=== PATIENT | female | born 1980 | race Caucasian/White ===

== ENCOUNTER 2022-01-02 14:34 | Emergency (ER) | payer BC, SELFPAY ==
[2022-01-02 14:59] VITALS: BP 130/77; PULSE 70; RESP 18; TEMP 37.2; O2SAT 100; BMI 27.4
--- NOTE | 2022-01-02 16:00 | ED.EAR ---
HPI - Ear Problem General Chief complaint: Ear Problems Stated complaint: FO stuck in ear Time Seen by Provider: 01/02/22 14:43 History of Present Illness HPI Narrative: Patient complains of ear bud stuck in left ear when she pulled out her headphones Related Data Home Medications Medication Instructions Recorded Confirmed albuterol sulfate 90 mcg/actuation 2 puff inhalation Q4H PRN wheezing 01/02/22 aerosol inhaler Allergies Allergy/AdvReac Type Severity Reaction Status Date / Time No Known Allergies Allergy Unverified 01/02/22 13:21 Review of Systems Review of Systems: Positive for left ear foreign body Negatives are no headache no blood from the ear no other ear pain no numbness weakness or tingling no dizziness no vomiting Yes all other systems are reviewed and are negative PMFSH Past Medical History Source: nursing notes reviewed Social History Social History Advance Directives: No Advance Directives Information Provided: No Physical Exam Vital Signs: Vital Signs: Last Vital Signs Temp 98.9 F 01/02/22 14:59 Pulse 70 01/02/22 14:59 Resp 18 01/02/22 14:59 BP 130/77 01/02/22 14:59 Pulse Ox 100 01/02/22 14:59 O2 Del Method 01/02/22 14:59 BMI result Body Mass Index 27.4 General appearance no distress Head is normocephalic atraumatic The ear exam the right ear is normal The left ear has the ear bud close to the entrance of the ear canal otherwise obscuring the tympanic membrane Neck is supple Respiratory no distress Extremities full range of motion x4 Neuro gait and balance are normal Course Course Course Narrative: ER Course PA student removed the ear but with a forceps without incident After removal the tympanic membrane was clear the canal was not scratched and it was a normal ear exam with foreign body removed Discharge Plan Discharge Clinical Impression: Foreign body in left ear Patient Disposition: Home, Self-Care Additional Instructions: Foreign body was removed Eardrum was intact no sign of any damage Return any time any worse condition or any concerns Prescriptions: No Action albuterol sulfate 90 mcg/actuation HFA aerosol inhaler 2 puff inhalation Q4H PRN (Reason: wheezing)
== END 2022-01-02 17:41 | disposition home or self-care (01) ==
PROVIDERS: Emergency Provider Emergency Medicine; PCP Internal Medicine
DX: T16.2XXA Foreign body in left ear, initial encounter (principal); X58.XXXA Exposure to other specified factors, initial encounter
CPT/HCPCS: 69200; 99282; 99284

== ENCOUNTER 2022-07-12 10:08 | Outpatient (REF) | payer BC, SELFPAY ==
[2022-07-12 15:50] LABS: CT PCR NOT DETECTED (Not Detect.); NG PCR NOT DETECTED (Not Detect.)
[2022-07-13 09:37] LABS: BV Int Neg Control Negative (Negative); BV Int Pos Control Positive (Positive)
[2022-07-15 02:44] LABS: HPV mRNA E6/E7 rflx Not Detected (Not Detected)
== END 2022-07-12 10:09 | disposition home or self-care (01) ==
LOC: HO.LNP 10:08
PROVIDERS: PCP Internal Medicine; Visit Provider Advanced Practice Midwife
DX: Z01.419 Encounter for gynecological examination (general) (routine) without abnormal findings (principal); Z11.51 Encounter for screening for human papillomavirus (HPV); N92.0 Excessive and frequent menstruation with regular cycle; Z20.2 Contact with and (suspected) exposure to infections with a predominantly sexual mode of transmission
CPT/HCPCS: 0353U; 87480; 87510; 87624; 87660; 88142

== ENCOUNTER 2023-01-04 14:14 | Outpatient (AMB) | payer BC, SELFPAY ==
--- NOTE | 2023-01-04 14:20 | MHC.OFFWIV ---
Intake Vital Signs 01/04/23 14:21 Weight 149 lb BP 112/68 Blood Pressure Location Rt brachial Position Sitting Pulse 88 Pulse Source Pulse Oximeter Pulse Oximetry (%) 97 Oxygen Delivery Method Room Air Intake Visit Reasons: EP Sores Intake Note: Patient here because she is aware she has an STD and has been but recently got and would like to have Valtrex prescribed. She states shes had it in the past. Patient Tobacco Use Status: Former Tobacco user Allergies No Known Allergies Allergy (Verified 01/04/23 14:23) Do you need a note to return to daycare/school/sports/work: No HPI HPI Comments History of Present Illness Details 42-year-old female history of HSV that presents for sore. Patient states that she has a history of HSV has been on the cycler in the past. She has flare-ups every once in a while but has been with same partner for 20 years. She is recently in has a sore. She denies any fevers chills nausea vomiting. PFSH Family History (Updated 07/12/22 @ 10:21 by CLINT Heck) Paternal Grandmother Breast cancer Social History Household Members Other:: , 2 children 9 ,5. works at [employer], exercise, Housing: House Patient Tobacco Use Status: Former Tobacco user e-Cigarette/Vaping Use: Never Used service: No Current occupational status: employed Cognitive needs: No Hearing needs: No Vision needs: No Female Reproductive History Menstrual Age of Menarche: 13 Review of Systems Skin/Breast Details: Sore on labia Physical Exam Vital Signs: Last Vital Signs Pulse 88 01/04/23 14:21 BP 112/68 01/04/23 14:21 Pulse Ox 97 01/04/23 14:21 Oxygen Delivery Method Room Air 01/04/23 14:21 Const General: no acute distress and alert Other: patient deferred exam at this time. Assessment & Plan Assessment & Plan (1) HSV (herpes simplex virus) infection: Code(s): B00.9 - Herpesviral infection, unspecified Plan Patient's symptoms and history consistent with HSV recurrence. Will prescribe valacyclovir. Discharge instructions, follow up and treatment are discussed with patient in my usual fashion. Alternatives in treatment are also discussed. The patient will return for worsening symptoms or as needed. Advised that any labs/imaging ordered will be followed up on and contact made if further treatment needed. Counseled that patient's condition may require further evaluation and/or treatment. Symptoms of concern for worsening disorder discussed in detail in my customary manner. Patient does verbalize understanding of the plan, there are no apparent barriers to communication. The patient is given the opportunity to ask questions and have them answered to his/her satisfaction Medications: New valacyclovir 500 mg PO BID 3 days 6 tabs 0RF Coding Level of Care Code Est Pt Level 3 (68921) Diagnoses HSV (herpes simplex virus) infection B00.9
[2023-01-04 14:21] VITALS: BP 112/68; PULSE 88; O2SAT 97
== END 2023-01-04 15:16 | disposition home or self-care (01) ==
PROVIDERS: PCP Internal Medicine; Visit Provider Physician Assistant
DX: B00.9 Herpesviral infection, unspecified (principal)
CPT/HCPCS: 99213

== ENCOUNTER 2023-03-20 10:30 | Outpatient (AMB) | payer BC, SELFPAY ==
--- NOTE | 2023-03-20 10:38 | A.OFFPC_ITS ---
Vital Signs 03/20/23 10:39 Height 5 ft 3 in Weight 152 lb 8 oz BMI 27.0 BP 118/76 Blood Pressure Location Lt brachial Pulse 78 Pulse Source Pulse Oximeter Pulse Oximetry (%) 98 Oxygen Delivery Method Room Air Intake Visit Reasons: buttocks muscle pain, valtrex therapy Intake Note: Patient here because she fell and landed on a ledge in january and was very brusied at first but now she has indent on her buttocks. And also has mole on right side of chest that she would like to have looked at. Allergies No Known Allergies Allergy (Verified 03/20/23 10:41) Medication List - Last Reconciled 03/20/23 by Mercy Stanley MD albuterol sulfate 90 mcg/actuation 2 puffs inhalation Q4H PRN valacyclovir 500 mg PO BID Tobacco use date assessed: 05/24/22 HPI buttocks muscle pain, valtrex therapy HPI Details Pt presents for f/u of a fall from 7 FT height on L buttock in Jan. pain and swelling resolved but pt has persistent indentation in L buttock. Asthma is mild and controlled on Proair prn 1- 2 in month. PFSH Family History Paternal Grandmother Breast cancer Social History Household Members Other:: , 2 children 9 ,5. works at [email or web address], exercise, Housing: House Patient Tobacco Use Status: Former Tobacco user e-Cigarette/Vaping Use: Never Used service: No Current occupational status: employed Cognitive needs: No Hearing needs: No Vision needs: No Female Reproductive History Menstrual Age of Menarche: 13 Questionnaire Thrive Questionnaire Date Thrive assessed: 05/24/22 JIE-7 AMB Questionnaire JIE-7 Date JIE - 7 assessed: 05/24/22 Source: Developed by Drs. Zan Parkinson, Vanessa Aguilar, Eliel Gomez and colleagues, with an educational deepak from [employer]. Review of Systems Const All systems reviewed & are unremarkable except as noted in HPI and below Reports no additional complaints Eyes Reports no additional complaints ENT Reports no additional complaints Card Reports no additional complaints Resp Reports no additional complaints GI Reports no additional complaints Reports no additional complaints Physical exam (Primary Care) Vital Signs: Last Vital Signs Pulse 78 03/20/23 10:39 BP 118/76 03/20/23 10:39 Pulse Ox 98 03/20/23 10:39 Oxygen Delivery Method Room Air 03/20/23 10:39 BMI result Body Mass Index 27.0 Tobacco/Smoking Status: Tobacco use Status Tobacco use date assessed 05/24/22 03/20/23 10:43 Patient Tobacco Use Status Former Tobacco user 03/20/23 10:43 e-Cigarette/Vaping Use Never Used 03/20/23 10:43 Thrive Assessment: Date of Thrive Assessment Date Thrive assessed 05/24/22 03/20/23 10:43 Const General: no acute distress HENMT Head: Yes normal to inspection Resp Effort & Inspection: normal respiratory effort Auscultation: clear to auscultation bilaterally Cardio Rhythm: regular rhythm Heart sounds: S1 normal heart sound present and S2 normal heart sound present Back/Spine/Pelvis Other: L buttock horizontal void , no tenderness, swelling Assessment and Plan Assessment & Plan (1) Annual physical exam: Code(s): Z00.00 - Encounter for general adult medical examination without abnormal findings (2) Asthma: Comment: Mild controlled on albuterol p.r.n. Code(s): J45.909 - Unspecified asthma, uncomplicated Plan: cont Albuterol prn (3) Herpes genitalia: Comment: on Valtrex prophylaxis Code(s): A60.00 - Herpesviral infection of urogenital system, unspecified Orders: Orders Comprehensive [place]. Panel Fast Today J45.909 - Unspecified asthma, u ncomplicated, Z00.00 - Encounter for general adult medical examination without abnormal findings Complete Blood Count Auto Diff Today J45.909 - Unspecified asthma, uncomplic ated, Z00.00 - Encounter for general adult medical examination without abnormal findings Lipid Panel Today J45.909 - Unspecified asthma, uncomplicated, Z00.00 - Encounter for general adult medical examination without abnormal findings IRON PROFILE Today Z00.00 - Encounter for general adult medical examination without abnormal findings Medications: Changed From valacyclovir 500 mg PO BID 60 tabs 3RF To valacyclovir 500 mg PO DAILY 90 tabs 3RF Refilled albuterol sulfate 90 mcg/actuation 2 puffs inhalation Q4H PRN 8.5 grams 3RF whe ezing J45.909 - Unspecified asthma, uncomplicated Coding Level of Care Code Est Pt Level 3 (27377) Diagnoses Annual physical exam Z00.00 Asthma J45.909 Herpes genitalia A60.00
[2023-03-20 10:39] VITALS: BP 118/76; PULSE 78; O2SAT 98; BMI 27.0
== END 2023-03-20 12:02 | disposition home or self-care (01) ==
PROVIDERS: PCP Internal Medicine; Visit Provider Internal Medicine
DX: Z00.00 Encounter for general adult medical examination without abnormal findings (principal); J45.909 Unspecified asthma, uncomplicated; A60.00 Herpesviral infection of urogenital system, unspecified
CPT/HCPCS: 99213

== ENCOUNTER 2023-08-15 11:40 | Outpatient (AMB) | payer OTHER, SELFPAY ==
[2023-08-15 12:02] VITALS: BP 110/62
--- NOTE | 2023-08-15 12:02 | A.OFFVIS_ITS ---
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 She had been contemplating a ParaGard IUD last year but has decided against that but now her periods are becoming longer heavier more crampy more annoying to her and they seem to last longer she is actually been thinking about getting in a Mirena IUD she had had 1 in the past after her last child was born and it always caused her cramping and pain and discomfort and when it was finally removed some years later it turns out that it was some how crooked in her cervix/uterus and that is what was causing all the discomfort so that put her off the Mirena but now she is thinking about it again. She has been doing some reading. She is gotten and she feels much happier and she is dating somebody but that person has had a vasectomy so she does not need to worry about but she definitely wants to do something about her heavy periods. She also has been having back issues and would like her breast implants removed but isn't sure about how to approach that challenge. She had to cancel the mammogram last year because of work and so she would like to schedule that again. PFSH Family History Paternal Grandmother Breast cancer Social History Household Members Other:: , 2 children 9 ,5. works at [employer], exercise, Housing: House Patient Tobacco Use Status: Former Tobacco user e-Cigarette/Vaping Use: Never Used service: No Current occupational status: employed Cognitive needs: No Hearing needs: No Vision needs: No Female Reproductive History Menstrual Age of Menarche: 13 Duration of menses: 3-5 days Date of last menstrual period: 08/02/23 control method: none Total pregnancies: 2 Full term: 2 Date of last pap smear: 07/12/22 (negative) History of abnormal pap smear: No Physical Exam Vital Signs: Last Vital Signs BP 110/62 08/15/23 12:02 Const General: healthy appearing, comfortable, no acute distress, well developed and alert Nutritional Appearance: average body habitus Orientation/consciousness: patient oriented x3 Limitations: no limitations HEENT Head: Yes normocephalic Neck Neck: Yes normal visual inspection Chest Other: Has bilateral breast implants Chest palpation & inspection: normal inspection of the chest Breast/axilla inspection: normal inspection of the breasts and normal inspection of the axillae Breast/axilla palpation: normal palpation of the breasts and normal palpation of the axillae Resp Effort & Inspection: normal respiratory effort GI Inspection: Yes normal to inspection, No Abdominal wall edema and No distended Palpation (GI): Soft to palpation and nontender Other: External exam within normal limits vagina pink and moist cervix is tightly closed nulliparous pink smooth no abnormal discharge uterus small slightly fixed midposition nontender adnexa nontender very good tone with Kegel. General: Yes bladder normal to palpation External Female Exam: normal external appearance and normal appearance of the urethra Speculum Exam - Vagina: normal appearance of the vagina, normal palpation and normal vaginal discharge Speculum Exam - Cervix: normal appearance of the cervix, normal palpation and nontender Bimanual exam- vagina & uterus: normal bimanual exam, normal palpation, uterine size normal, bladder normal to palpation, consistency normal, normal palpation, uterine mobility normal, uterine shape normal, No Cervical tenderness present, non-tender and no cervical motion tenderness Bimanual Exam- Adnexa, other: normal adnexae, no masses, normal and No adnexal tenderness Neuro General: patient oriented x3 Assessment & Plan Assessment & Plan (1) Breast implant in situ: Code(s): Z98.82 - Breast implant status (2) Breast cancer screening: Code(s): Z12.39 - Encounter for other screening for malignant neoplasm of breast (3) Well woman exam with routine gynecological exam: Code(s): Z01.419 - Encounter for gynecological examination (general) (routine) without abnormal findings (4) Cervical cancer screening: Comment: 07/12/2022 Pap is negative with negative HPV Code(s): Z12.4 - Encounter for screening for malignant neoplasm of cervix (5) Screen for sexually transmitted diseases: Code(s): Z11.3 - Encounter for screening for infections with a predominantly sexual mode of transmission (6) control counseling: Code(s): Z30.09 - Encounter for other general counseling and advice on contraception (7) Menorrhagia with regular cycle: Code(s): N92.0 - Excessive and frequent menstruation with regular cycle Plan -----Discussed in this visit the following: healthy balanced diet, regular and consistent exercise, getting recommended health screens, doing the best she can for her particular health concerns, kegel exercises, pap smear screening and followup recommendations, mammography screening and SBE, normal changes in cycles in her life stage--- .Reviewed how the Mirena works and its affect on menstrual cycles and menses and the other common changes that women sometimes notice on mood weight another subtle cyclic changes. Reviewed that 1 of the reasons we insert the Mirena at the beginning of the menses is because of the typical physiologic changes that happen with menses that allow for the cervix to be slightly softened and open a very tiny bit which allow for more easy insertion of the Mirena. Additionally when it is inserted at the beginning of the menstrual cycle the endometrial lining has not built up very much yet as it is just shedding its lining, and therefore future periods will be expected to be cork molder and there will be less of a problematic side effect of irregular bleeding which might occur her if we inserted it at a random time. Also discussed the initial recommendations to use the Mirena IUD for contraception for up to 5 years. Some recent studies are indicating that it can be used for longer and there are current recommendations saying it can be left for longer period of time when used for contraception, up to 8 years and it can be used for 5 years when it is being used to help control abnormal bleeding. However, many women, whose periods went away for the 1st few years of having the Mirena, have reported that around 4-1/2-5 years into its use, they have noticed return of full menses, and return of ovulatory signs and symptoms midcycle. This varies from women to woman. In addition women who have had it to help control bleeding, have had amenorrhea for very many years and sometimes have opted to leave it in longer if they are still not bleeding, when they are not concerned about contraception. Since she is interested in the Mirena to help control her heavy crampy periods she is interested now more in the Mirena rather than the ParaGard which would have the opposite effect essentially. I reviewed why I will only insert it in the heaviest crampy is days of her. And why that is and I showed her her tightly closed nulliparous cervix as well to help illustrate this. (she had 2 C sections) I reordered her mammogram for her and she will call at the very beginning of her. And will try to schedule it for when she has her heaviest menses. Orders: Orders MM tomosynthesis screening BI Today N92.0 - Excessive and frequent menstruation with regular cycle, Z01.419 - Encounter for gynecological examination (general) (routine) without abnormal findings, Z11.3 - Encounter for screening for infections with a predominantly sexual mode of transmission, Z12.31 - Encounter for screening mammogram for malignant neoplasm of breast, Z12.39 - Encounter for other screening for malignant neoplasm of breast, Z12.4 - Encounter for screening for malignant neoplasm of cervix, Z30.09 - Encounter for other general counseling and advice on contraception, Z98.82 - Breast implant status Coding Level of Care Code Est Pt Prev Care 40-64y(76873) Diagnoses Breast implant in situ Z98.82 Breast cancer screening Z12.39 Well woman exam with routine gynecological exam Z01.419 Cervical cancer screening Z12.4 Screen for sexually transmitted diseases Z11.3 control counseling Z30.09 Menorrhagia with regular cycle N92.0
== END 2023-08-15 13:24 | disposition home or self-care (01) ==
PROVIDERS: PCP Internal Medicine; Visit Provider Advanced Practice Midwife
DX: Z01.419 Encounter for gynecological examination (general) (routine) without abnormal findings (principal); N92.0 Excessive and frequent menstruation with regular cycle; Z98.82 Breast implant status
CPT/HCPCS: 99396

== ENCOUNTER 2023-08-15 11:40 | Outpatient (REF) | payer OTHER, SELFPAY ==
[2023-08-16 06:31] LABS: CT PCR NOT DETECTED (Not Detect.); NG PCR NOT DETECTED (Not Detect.)
[2023-08-16 13:04] LABS: BV Int Neg Control Negative (Negative); BV Int Pos Control Positive (Positive)
== END 2023-08-15 11:41 | disposition home or self-care (01) ==
LOC: HO.LAB 11:40
PROVIDERS: PCP Internal Medicine; Visit Provider Advanced Practice Midwife
DX: Z01.419 Encounter for gynecological examination (general) (routine) without abnormal findings (principal); Z20.2 Contact with and (suspected) exposure to infections with a predominantly sexual mode of transmission; N92.0 Excessive and frequent menstruation with regular cycle
CPT/HCPCS: 0353U; 87480; 87510; 87660

== ENCOUNTER 2024-03-22 13:42 | Outpatient (AMB) | payer OTHER, SELFPAY ==
--- NOTE | 2024-03-22 13:47 | AM.OFFWIN_ITS ---
Intake Vital Signs 03/22/24 13:48 Height 5 ft 3 in BP 120/72 Blood Pressure Location Rt brachial Position Sitting Pulse 88 Pulse Source Pulse Oximeter Pulse Oximetry (%) 98 Intake Visit Reasons: EP Rash Intake Note: pt is here for rash all over body for the last few weeks, unsure why. denies new medications, or vaccines, denies changes to diet Patient Tobacco Use Status: Former Tobacco user Allergies No Known Allergies Allergy (Verified 03/22/24 13:48) Do you need a note to return to daycare/school/sports/work: No HPI HPI Comments History of Present Illness Details 43 y/o female patient who presents to [facility] walk in clinic with c/o rash that is very itchy covering her entire body for 2 weeks now. Denies any changes to her diet, cosmetic products, medications or Detergent. She has been using Hydrocortisone cream with minimal relief. H/o Mild asthma and seasonal allergies. 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 Denies SOB, CP, Chest tightness, facial edema, cough, runny nose or itchy eyes. PFSH Family History Paternal Grandmother Breast cancer Social History Household Members Other:: , 2 children 9 ,5. works at [employer], exercise, Housing: House Patient Tobacco Use Status: Former Tobacco user e-Cigarette/Vaping Use: Never Used service: No Current occupational status: employed Cognitive needs: No Hearing needs: No Vision needs: No Female Reproductive History Menstrual Age of Menarche: 13 Review of Systems Const All systems reviewed & are unremarkable except as noted in HPI and below Physical Exam Vital Signs: Last Vital Signs Pulse 88 03/22/24 13:48 BP 120/72 03/22/24 13:48 Pulse Ox 98 03/22/24 13:48 Const General: cooperative and no acute distress Orientation/consciousness: patient oriented x3 HEENT Head: Yes normocephalic General nose exam: Normal external nose present Face and sinus: Yes normal facial exam Mouth: moist mucous membranes Resp Effort & Inspection: normal respiratory effort Auscultation: clear to auscultation bilaterally Cardio Heart sounds: S1 normal heart sound present and S2 normal heart sound present Skin General skin exam: dry skin, erythema and lichenification Rashes: rashes noted (Small erythematous Hives, dry and raised rash covering the whole body. ) Neuro General: patient oriented x3, gait normal and moves all extremities Psych Speech and movement: Normal speech and movement present Assessment & Plan Assessment & Plan (1) Rash and nonspecific skin eruption: Code(s): R21 - Rash and other nonspecific skin eruption Plan: Ordered Prednisone for 5 days. Take Zyrtec 10 mg BID for few days. Ordered Topical steroid cream. Advised to f/u with Dermatology (Infor to [facility] given to Patient). Medications: New prednisone 50 mg PO DAILY 5 tabs 0RF R21 - Rash and other nonspecific skin eruption cetirizine (Zyrtec) TAKE DIRECTED 10 mg PO DAILY 30 caps 0RF R21 - Rash and other nonspecific skin eruption triamcinolone acetonide 0.025% 1 appl topical BID 60 mL 2RF R21 - Rash and other nonspecific skin eruption Coding Level of Care Code Est Pt Level 3 (75662) Diagnoses Rash and nonspecific skin eruption R21 Time Spent (min) 15
[2024-03-22 13:48] VITALS: BP 120/72; PULSE 88; O2SAT 98
== END 2024-03-22 14:06 | disposition home or self-care (01) ==
PROVIDERS: PCP Internal Medicine; Visit Provider Nurse Practitioner Family
DX: R21 Rash and other nonspecific skin eruption (principal)

== ENCOUNTER → 2024-03-22 13:42 | Outpatient (BNVA) | payer OTHER, SELFPAY | PROVIDERS: PCP Internal Medicine; Visit Provider Nurse Practitioner Family ==

== ENCOUNTER 2024-04-17 12:55 | Outpatient (AMB) | payer OTHER, SELFPAY ==
[2024-04-17 13:02] VITALS: BP 120/78; PULSE 89; O2SAT 97; BMI 30.1
--- NOTE | 2024-04-17 13:02 | MHC.PC.OV ---
Vital Signs 04/17/24 13:02 Height 5 ft 3 in Weight 170 lb BMI 30.1 BP 120/78 Blood Pressure Location Rt brachial Position Sitting Pulse 89 Pulse Source Pulse Oximeter Pulse Oximetry (%) 97 Oxygen Delivery Method Room Air Intake Visit Reasons: robert Intake Note: Pt is here today for a sick visit. Pt c/o chest cold. Pt states that the cough and wheezing worst at night. Allergies No Known Allergies Allergy (Verified 04/17/24 13:06) Medication List - Last Reconciled 04/17/24 by Mercy Stanley MD albuterol sulfate 90 mcg/actuation 2 puffs inhalation Q4H PRN cetirizine (Zyrtec) 10 mg PO DAILY fluticasone propion-salmeterol 250-50 mcg/dose (Advair Diskus) 1 inh inhalation BID prednisone 20 mg PO DAILY triamcinolone acetonide 0.025% 1 appl topical BID valacyclovir 500 mg PO DAILY Tobacco use date assessed: 04/17/24 Dental Screening Dental Screen Date: 04/17/24 Did you have a dental visit in the last 12 months?: Yes Did you have a dental problem in the last 6 months where you did not have access to dental care?: No Was dental information given to patient?: Patient has dentist HPI robert HPI Details Pt c/o 2 week of productive white sputum cough, increased wheezing for 2 week. She has been using albuterol a few times a day. She denies fever chills pleurisy sinus congestion postnasal drip. Patient used to use Advair but did not refill it in the beginning of the year because of a high cost. She has been trying to lose weight, decreasing caloric intake , increasing physical activity for over 6 months unsuccessfully. Patient is interested in trying GLP 1 agonist to facilitate weight loss PFSH Family History Paternal Grandmother Breast cancer Social History Household Members Other:: , 2 children 9 ,5. works at [employer], exercise, Housing: House Patient Tobacco Use Status: Former Tobacco user e-Cigarette/Vaping Use: Never Used service: No Current occupational status: employed Cognitive needs: No Hearing needs: No Vision needs: No Female Reproductive History Menstrual Age of Menarche: 13 Questionnaire PHQ-9 Over the last 2 weeks, how often have you been bothered by any of the following problems? 1. Little interest or pleasure in doing things: not at all 2. Feeling down, depressed, or hopeless: not at all 3. Trouble falling or staying asleep, or sleeping too much: several days 4. Feeling tired or having little energy: several days 5. Poor appetite or overeating: more than half the days 6. Feeling bad about yourself - or that you are a failure or have let yourself or your family down: not at all 7. Trouble concentrating on things, such as reading the newspaper or watching television: not at all 8. Moving or speaking so slowly that other people could have noticed. Or the opposite - being so fidgety or restless that you have been moving around a lot more than usual: not at all 9. Thoughts that you would be better off or of hurting yourself in some way: not at all Total score: 4 Depression Screening Interpretation: Negative Depression Screening Done: Yes 03301 - PHQ-9 Billing: Yes Source: Developed by Drs. Zan Parkinson, Vanessa Aguilar, Eliel Gomez and colleagues, with an educational deepak from [employer]. Thrive Questionnaire Date Thrive assessed: 04/17/24 I am a: Patient What is your living situation today?: I have a steady place to live Within the past 12 months, did the food you bought not last and you didn't have the money to get more?: Never true Within the past 12 months, did you worry whether your food would run out before you got money to buy more?: Never true Do you have trouble paying for medicines?: No Do you have trouble getting transportation to medical appointments?: No Do you have trouble paying your heating and electricity bill?: No Do you have trouble taking care of your child, family member or friend?: No Do you have trouble with day-to-day activities such as bathing, preparing meals, shopping, managing finances, etc.?: No Are you currently unemployed and looking for a job?: No Are you interested in more education?: No Please select the resources that you would like help with: Food Currently or been in a relationship where the following occur: No concerns reported THRIVE Score: 0 AUDIT C Alcohol Use Questionnaire (AUDIT-C) 1. How often do you have a drink containing alcohol?: Monthly or less 2. How many drinks containing alcohol do you have on a typical day when you are drinking?: 1 or 2 3. How often do you have six or more drinks on one occasion?: Never Total Score: 1 JIE-7 AMB Questionnaire JIE-7 Date JIE - 7 assessed: 04/17/24 Feeling nervous, anxious, or on edge: 0 = Not at all Not being able to stop or control worryin = Not at all Worrying too much about different things: 0 = Not at all Trouble relaxin = Not at all Being so restless that it is hard to sit still: 0 = Not at all Becoming easily annoyed or irritable: 0 = Not at all Feeling afraid as if something awful might happen: 0 = Not at all Total JIE-7 score (0-4 normal; 5-9 mild; 10-14 moderate; 15-21 severe): 0 Source: Developed by Drs. Zan Parkinson, Vanessa Aguilar, Eliel Gomez and colleagues, with an educational deepak from [employer]. JIE-7 Assessment Billing JIE-7 Assessment Tool: JIE-7 Assessment 65283 Review of Systems Const All systems reviewed & are unremarkable except as noted in HPI and below ENT Reports no additional complaints Card Reports no additional complaints Resp Reports no additional complaints GI Reports no additional complaints Reports no additional complaints Physical exam (Primary Care) Vital Signs: Last Vital Signs Pulse 89 04/17/24 13:02 BP 120/78 04/17/24 13:02 Pulse Ox 97 04/17/24 13:02 Oxygen Delivery Method Room Air 04/17/24 13:02 BMI result Body Mass Index 30.1 Tobacco/Smoking Status: Tobacco use Status Tobacco use date assessed 04/17/24 04/17/24 13:08 Patient Tobacco Use Status Former Tobacco user 04/17/24 13:08 e-Cigarette/Vaping Use Never Used 04/17/24 13:08 PHQ-9: PHQ-9 Score PHQ-9: Total score 4 04/17/24 13:08 Depression Screening Interpretation: Negative Thrive Assessment: Date of Thrive Assessment Date Thrive assessed 04/17/24 04/17/24 13:08 Currently or been in a relationship where the following occur: No concerns reported Const General: no acute distress HENMT Head: Yes normal to inspection Mouth: Normal oral and palatal mucosa present Eyes General: appearance normal, both eyes and all related structures Neck Neck: Yes supple Resp Effort & Inspection: normal respiratory effort Auscultation: clear to auscultation bilaterally Cardio Rhythm: regular rhythm Heart sounds: S1 normal heart sound present and S2 normal heart sound present Coding Level of Care Code Est Pt Level 4 (20004) Diagnoses Annual physical exam Z. Overweight E66.3 Asthma J45.909 Additional Codes JIE-7 Assessment Billing - JIE-7 Assessment Tool: JIE-7 Assessment 96458 ([id number]) PHQ-9 - 80586 - PHQ-9 Billing: Yes ([id number]) Assessment & Plan Assessment & Plan (1) Annual physical exam: Code(s): Z - Encounter for general adult medical examination without abnormal findings Category: Medical Plan: Check fasting blood work return for physical in May (2) Overweight: Code(s): E66.3 - Overweight Category: Medical Plan: Continue decreasing caloric intake increasing physical activity Wegovy 0.25 mg weekly for the 1st month will be started side effects discussed with the patient. The dose can be increased if patient tolerate medication well (3) Asthma: Comment: Mild controlled on albuterol p.r.n. Code(s): J45.909 - Unspecified asthma, uncomplicated Category: Medical Plan: For worsening asthma Advair 250 will be restarted. Prednisone 20 mg daily for 5 days is prescribed and patient was advised to continue using albuterol as needed, follow-up in 1 month Orders: Orders Comprehensive [place]. Panel Fast Today Z00.00 - Encounter for general adult medical examination without abnormal findings Complete Blood Count Auto Diff Today Z00.00 - Encounter for general adult medical examination without abnormal findings TSH reflex Free T4 Today Z00.00 - Encounter for general adult medical examination without abnormal findings Lipid Panel Today Z00.00 - Encounter for general adult medical examination without abnormal findings UA w Microscopic Today Z00.00 - Encounter for general adult medical examination without abnormal findings Medications: New fluticasone propion-salmeterol 250-50 mcg/dose (Advair Diskus) 1 inh inhalation BID 180 ea 1RF prednisone 20 mg PO DAILY 5 tabs 0RF Wegovy (semaglutide (weight loss)) administer weeks 1 through 4 of therapy 0.25 mg (0.5 mL) subcut QWEEK 2 mL 0RF NS Refilled albuterol sulfate 90 mcg/actuation 2 puffs inhalation Q4H PRN 8.5 grams 3RF wheezing J45.909 - Unspecified asthma, uncomplicated albuterol sulfate 90 mcg/actuation 2 puffs inhalation Q4H PRN 17 grams 3RF wheezing J45.909 - Unspecified asthma, uncomplicated
== END 2024-04-17 14:16 | disposition home or self-care (01) ==
PROVIDERS: PCP Internal Medicine; Visit Provider Internal Medicine
DX: Z00.00 Encounter for general adult medical examination without abnormal findings (principal); E66.3 Overweight; J45.909 Unspecified asthma, uncomplicated

== ENCOUNTER → 2024-04-17 12:55 | Outpatient (BNVA) | payer OTHER, SELFPAY | PROVIDERS: PCP Internal Medicine; Visit Provider Internal Medicine | DX: Z00.00 Encounter for general adult medical examination without abnormal findings (principal); E66.3 Overweight; Z68.30 Body mass index [BMI] 30.0-30.9, adult; J45.909 Unspecified asthma, uncomplicated | CPT/HCPCS: 96127 ==

== ENCOUNTER 2024-08-18 10:45 | Outpatient (AMB) | payer OTHER, SELFPAY ==
--- NOTE | 2024-08-18 10:46 | MHC.OFFVIS ---
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 (E[place]) Accompanied by: Self / Same As Patient Allergies No Known Allergies Allergy (Verified 08/18/24 10:51) Medication List - Last Reconciled 08/18/24 by Angie Whiteside CNM albuterol sulfate 90 mcg/actuation 2 puffs inhalation Q4H PRN cetirizine (Zyrtec) 10 mg PO DAILY fluticasone propion-salmeterol 250-50 mcg/dose (Advair Diskus) 1 inh inhalation BID triamcinolone acetonide 0.025% 1 appl topical BID valacyclovir 500 mg PO DAILY Is last menstrual period known: Yes Last menstrual period: 07/29/24 Post menopausal: No Patient : No HPI HPI MANDREL PRESS HAND annual exam: Details: 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 Her main concerns are that she has gained 30 lb in the last year or so since her divorce. She is in a good relationship and declines STI testing today as nothing has changed. He has a vasectomy so she does not need to worry about control either she had considered a Mirena for heavy periods but did not really like it when it was in before so she decided against it. She had a mammogram ordered last year but never went and got it done she has breast implants and wishes she could get them out. Her main concern is the weight gain she had been on Wegovy which was prescribed for her but her insurance is no longer pain for it since the beginning of the year and it would be 1600 dollars a month for and she can not afford that. She is interested in a referral to the weight management program. She feels like she needs to do something she feels very uncomfortable at her current weight. PFSH Family History Paternal Grandmother Breast cancer Social History Household Members Other:: , 2 children 9 ,5. works at [employer], exercise, Housing: House Patient Tobacco Use Status: Former Tobacco user e-Cigarette/Vaping Use: Never Used Patient : No service: No Current occupational status: employed Cognitive needs: No Hearing needs: No Vision needs: No Female Reproductive History Menstrual Age of Menarche: 13 Duration of menses: 6-7 days Date of last menstrual period: 07/29/24 control method: none Total pregnancies: 2 Full term: 2 Date of last pap smear: 07/12/22 (negative pap smear, negative hpv ) History of abnormal pap smear: No Physical Exam Vital Signs: Last Vital Signs BP 120/72 08/18/24 10:56 BMI result Body Mass Index 30.6 Const Other: Patient's face appears slightly flush today and she is breaking out in some hives on her torso and upper thighs. She is not bothered by them. General: healthy appearing, comfortable, no acute distress, well developed and alert Nutritional Appearance: average body habitus Orientation/consciousness: patient oriented x3 Limitations: no limitations HEENT Head: Yes normocephalic Neck Neck: Yes normal visual inspection Chest Chest palpation & inspection: normal inspection of the chest Breast/axilla inspection: normal inspection of the breasts and normal inspection of the axillae Breast/axilla palpation: normal palpation of the breasts and normal palpation of the axillae Resp Effort & Inspection: normal respiratory effort GI Inspection: Yes normal to inspection, No Abdominal wall edema and No distended Palpation (GI): Soft to palpation and nontender Other: Vagina pink and moist cervix multiparous pink smooth healthy appearing with normal whitish mucus and discharge consistent with luteal phase. Cervix long close thick mobile nontender uterus midposition mobile nontender good tone with Kegel. General: Yes bladder normal to palpation External Female Exam: normal external appearance and normal appearance of the urethra Speculum Exam - Vagina: normal appearance of the vagina, normal palpation and normal vaginal discharge Speculum Exam - Cervix: normal appearance of the cervix, normal palpation and nontender Bimanual exam- vagina & uterus: normal bimanual exam, normal palpation, uterine size normal, bladder normal to palpation, consistency normal, normal palpation, uterine mobility normal, uterine shape normal, No Cervical tenderness present, non-tender and no cervical motion tenderness Bimanual Exam- Adnexa, other: normal adnexae, no masses, normal and No adnexal tenderness Neuro General: patient oriented x3 Assessment & Plan Assessment & Plan (1) Breast implant in situ: Code(s): Z98.82 - Breast implant status Category: Medical (2) Breast cancer screening: Code(s): Z12.39 - Encounter for other screening for malignant neoplasm of breast Category: Medical (3) Well woman exam with routine gynecological exam: Code(s): Z01.419 - Encounter for gynecological examination (general) (routine) without abnormal findings Category: Medical (4) Cervical cancer screening: Comment: 07/12/2022 Pap is negative with negative HPV Code(s): Z12.4 - Encounter for screening for malignant neoplasm of cervix Category: Medical (5) control counseling: Code(s): Z30.09 - Encounter for other general counseling and advice on contraception Category: Medical (6) Obesity (BMI 30.0-34.9): Code(s): E66.811 - Obesity, class 1 Category: Medical Plan -----Discussed in this visit the following: healthy balanced diet, regular and consistent exercise, getting recommended health screens, doing the best she can for her particular health concerns, kegel exercises, pap smear screening and followup recommendations, mammography screening and SBE, normal changes in cycles in her life stage--- . I reordered the mammogram for her. I also placed a weight management referral for her discussed that if she was ever going to could do something about her breasts she may want to lose the weight 1st. She is doing what she can do with exercise she can not go to the gym but she uses a walking pad while she is working throughout the day. Discussed diet and carbs she is aware of the connection and its affect on her. The problem is her partner is a very good cook. She was not due for Pap smear and she had no need of any current STI testing and declined it we will see her next year. Orders: Orders MM tomosynthesis screening BI Today Z12.31 - Encounter for screening mammogram for malignant neoplasm of breast Referrals Medical Weight Management Referral E66.811 - Obesity, class 1, Z01.419 - Encounter for gynecological examination (general) (routine) without abnormal findings, Z12.39 - Encounter for other screening for malignant neoplasm of breast, Z12.4 - Encounter for screening for malignant neoplasm of cervix, Z30.09 - Encounter for other general counseling and advice on contraception, Z98.82 - Breast implant status Coding Level of Care Code Est Pt Prev Care 40-64y(42786) Diagnoses Breast implant in situ Z98.82 Breast cancer screening Z12.39 Well woman exam with routine gynecological exam Z01.419 Cervical cancer screening Z12.4 control counseling Z30.09 Obesity (BMI 30.0-34.9) E66.811
[2024-08-18 10:56] VITALS: BP 120/72; BMI 30.6
--- OUTSIDE RECORDS SUMMARY | 2024-08-18 12:28 | XMS_ITS | Encounter Summary ---
[facility] Organization [facility] Address [address] [place] [address] Care Team Providers Care Bruise Trimmer Name Role Phone Delia Stratton DO Primary Care Pro vider Unavailable Young Duke MD Primary Care Provider [phone] Reason for Visit * Reason Onset Date Comments refill request 04/02/2019 Encounter Details Date Type Department Care Team Description 04/02/2019 Refill Adult Medicine [address] [address] Delia Stratton DO refill request Social History Tobacco Use Types Packs/Day Years Used Date Smoking Tobacco: Former Smokeless Tobacco: Never Comments:quit 2012 Alcohol Use Standard Drinks/Week Comments Yes 0 (1 standard drink = 0.6 oz pure alcohol) Every day- 4-5 wine or seltzers. Sex Assigned at Date Recorded Not on file documented as of this encounter Miscellaneous Notes * Telephone Encounter - Shira Natividad - 04/02/2019 3:23 PM EST Patient would like script to be: E-PRESCRIBED/FAXED TO PHARMACY WHEN WAS THE PATIENT'S LAST APPOINTMENT IN ADULT MEDICINE? 02/21/2019 WHEN WAS THE LAST TIME THE PATIENT SAW THEIR PCP? 02/25/2015 Does patient have an upcoming appointment? No-patient refused appointment, will call back to book appointment (THE MEDICATION REQUESTED IS ON THE MED LIST ABOVE) All of the medications requested were on the CURRENT MEDS list Did you check the Pharmacy information above?: YES Patient wants: 30 -day supply Is this a mail order prescription request ? NO If the refill is from a FAXED refill request what is the RX # listed on the fax? N/A Patients current insurance carrier is: Payor: [employer] / Plan: PPO $20 [id number] / Product Type: PPO [id number] documented in this encounter Plan of Treatment Not on file documented as of this encounter Visit Diagnoses Not on filedocumented in this encounter Care Teams Bruise Trimmer Relationship Specialty Start Date End Date Delia Stratton DO PCP - General Internal Medicine 12/22/14 04/07/21 Young Duke MD [address] [place], [place] [id number] PCP - General Internal Medicine 04/08/21 documented as of this encounter
--- OUTSIDE RECORDS SUMMARY | 2024-08-18 12:28 | XMS_ITS | Encounter Summary ---
Author Organization [facility] Address [address] [place] [address] Care Team Providers Care Assembler Finger Buffs Name Role Phone Delia Stratton DO Primary Care Pro vider Unavailable Young Duke MD Primary Care Provider [phone] Reason for Visit * Reason Onset Date Comments refill request 07/03/2019 Encounter Details Date Type Department Care Team Description 07/03/2019 Refill Adult Medicine [address] [address] Delia Stratton DO refill request Social History Tobacco Use Types Packs/Day Years Used Date Smoking Tobacco: Former Smokeless Tobacco: Never Comments:quit 2012 Alcohol Use Standard Drinks/Week Comments Yes 0 (1 standard drink = 0.6 oz pure alcohol) Every day- 4-5 wine or seltzers. Sex Assigned at Date Recorded Not on file documented as of this encounter Miscellaneous Notes * Telephone Encounter - Irasema Guzman M.A. - 07/03/2019 11:21 AM EST Will you fill, this is going to a pharmacy in [place] * Telephone Encounter - Linnette Darnell - 07/03/2019 11:11 AM EST Patient is on vacation in [facility]. Patient would like script to be: E-PRESCRIBED/FAXED TO PHARMACY WHEN WAS THE PATIENT'S LAST APPOINTMENT IN ADULT MEDICINE? 02/21/19 WHEN WAS THE LAST TIME THE PATIENT SAW THEIR PCP? 02/25/15 Does patient have an upcoming appointment? No-patient [...] is: Payor: [employer]JAT / Plan: PPO $20 [id number] / Product Type: PPO [id number] documented in this encounter Plan of Treatment Not on file documented as of this encounter Visit Diagnoses Not on filedocumented in this encounter Care Teams Assembler Finger Buffs Relationship Specialty Start Date End Date Delia Stratton DO PCP - General Internal Medicine 12/22/14 04/07/21 Young Duke MD [address] [place] [id number] PCP - General Internal Medicine 04/08/21 documented as of this encounter
--- OUTSIDE RECORDS SUMMARY | 2024-08-18 12:28 | XMS_ITS | Encounter Summary ---
Author Organization [facility] Address [address] [place] [address] Care Team Providers Care Orchestra Musician Name Role Phone Delia Stratton DO Primary Care Pro vider Unavailable Young Duke MD Primary Care Provider [phone] Reason for Visit * Reason Onset Date Comments Medication 08/13/2015 Encounter Details Date Type Department Care Team Description 08/13/2015 Telephone Adult Medicine [address] [address] Delia Stratton DO Medication Social History Tobacco Use Types Packs/Day Years Used Date Smoking Tobacco: Former Smokeless Tobacco: Never Comments:quit 2012 Alcohol Use Standard Drinks/Week Comments No 0 (1 standard drink = 0.6 oz pur e alcohol) Sex Assigned at Date Recorded Not on file documented as of this encounter Miscellaneous Notes * Telephone Encounter - Delia Lozano DO - 08/14/2015 8:51 PM EDT Like a nasal spray of an asthma inhaler? She doesn't have a documented h/o asthma * Telephone Encounter - Irasema Guzman M.A. - 08/13/2015 1:32 PM EDT Pt seen by Dr Renee on 02/25/15 for sinuses. Pt has seasonal allergies. Asking if an inhaler can be prescribed. Pt to see Gilma on 08/16/15 * Telephone Encounter - Andria Ledezma - 08/13/2015 12:05 PM EDT Patient seen pcp back in February was wondering if she could prescribe her an inhaler for her allergies, has an appointment for Sunday08/16/15 with Gilma Dutta for rash documented in this encounter Plan of Treatment Not on file documented as of this encounter Visit Diagnoses Not on filedocumented in this encounter Care Teams Orchestra Musician Relationship Specialty Start Date End Date Delia Stratton DO PCP - General Internal Medicine 12/22/14 04/07/21 Young Duke MD [address] [place] [address] PCP - General Internal Medicine 04/08/21 documented as of this encounter
--- OUTSIDE RECORDS SUMMARY | 2024-08-18 12:28 | XMS_ITS | Encounter Summary ---
Author Organization [facility] Address [address] [place] [address] Care Team Providers Care Crossband Layer Name Role Phone Delia Stratton DO Primary Care Pro vider Unavailable Young Duke MD Primary Care Provider [phone] Encounter Details Date Type Department Care Team Description 05/26/2016 Telephone Adult Medicine [address] [address] Delia Stratton DO Social History Tobacco Use Types Packs/Day Years Used Date Smoking Tobacco: Former Smokeless Tobacco: Never Comments:quit 2012 Alcohol Use Standard Drinks/Week Comments No 0 (1 standard drink = 0.6 oz pur e alcohol) Sex Assigned at Date Recorded Not on file documented as of this encounter Plan of Treatment Not on file documented as of this encounter Visit Diagnoses Not on filedocumented in this encounter Care Teams Crossband Layer Relationship Specialty Start Date End Date Delia Stratton DO PCP - General Internal Medicine 12/22/14 04/07/21 Young Duke MD [address] [place] [id number] PCP - General Internal Medicine 04/08/21 documented as of this encounter
--- OUTSIDE RECORDS SUMMARY | 2024-08-18 12:28 | XMS_ITS | Encounter Summary ---
Author Organization [facility] Address [address] [place] [address] Care Team Providers Care Supervisor Wound Name Role Phone Delia Stratton DO Primary Care Pro vider Unavailable Young Duke MD Primary Care Provider [phone] Encounter Details Date Type Department Care Team Description 05/26/2016 Night Triage Doc Medical Records [address] [place] [id number] Abstract, Provider Social History Tobacco Use Types Packs/Day Years [...] on filedocumented in this encounter Care Teams Supervisor Wound Relationship Specialty Start Date End Date Delia Stratton DO PCP - General Internal Medicine 12/22/14 04/07/21 Young Duke MD [address] [place] [phone] PCP - General Internal Medicine 04/08/21 documented as of this encounter
--- OUTSIDE RECORDS SUMMARY | 2024-08-18 12:28 | XMS_ITS | Encounter Summary ---
Author Organization [facility] Address [address] [place] [address] Care Team Providers Care Government Guard Name Role Phone Delia Stratton DO Primary Care Pro vider Unavailable Young Duke MD Primary Care Provider [phone] Encounter Details Date Type Department Care Team Description 04/22/2015 Hospital Medical Records [address] [place] [id number] Arabella uHi MD Social History Tobacco Use Types Packs/Day Years Used Date Smoking Tobacco: Former Smokeless Tobacco: Never Comments:quit 2012 Alcohol Use Standard Drinks/Week Comments Not Currently 0 (1 standard drink = 0.6 oz pur e alcohol) Sex Assigned at Date Recorded Not on file documented as of this encounter Plan of Treatment Not on file documented as of this encounter Visit Diagnoses Not on filedocumented in this encounter Care Teams Government Guard Relationship Specialty Start Date End Date Delia Stratton DO PCP - General Internal Medicine 12/22/14 04/07/21 Young Duke MD [address] [place] [address] [phone] PCP - General Internal Medicine 04/08/21 documented as of this encounter
--- OUTSIDE RECORDS SUMMARY | 2024-08-18 12:29 | XMS_ITS | Encounter Summary ---
Author Organization [facility] Address [address] [place] [address] Care Team Providers Care Editor Managing Newspaper Name Role Phone Delia Stratton DO Primary Care Pro vider Unavailable Young Duke MD Primary Care Provider [phone] Encounter Details Date Type Department Care Team Description 10/06/2016 Quality Process Auditor Report Medical Records [address] [place] [id number] Wesley Palomares Social History Tobacco Use Types Packs/Day Years [...] on filedocumented in this encounter Care Teams Editor Managing Newspaper Relationship Specialty Start Date End Date Delia Stratton DO PCP - General Internal Medicine 12/22/14 04/07/21 Young Duke MD [address] [place] [address] [phone] PCP - General Internal Medicine 04/08/21 documented as of this encounter
--- OUTSIDE RECORDS SUMMARY | 2024-08-18 12:29 | XMS_ITS | Clinical Summary ---
Author Organization [facility] Address [address] [place] [address] Care Team Providers Care Cold Storage Worker Name Role Phone Young Duke MD Primary Care Provider [phone] Allergies Active Allergy Reactions Severity Noted Date Comments Seasonal Allergies 08/16/2015 Medications Medication Sig Dispensed Refills Start Date End Date Status meloxicam (MOBIC) 15 MG tablet Take 1 Tab by mouth daily. 30 Tab 5 09/19/2017 Active albuterol (PROVENTIL) (2.5 MG/3ML) 0.083% nebulizer solution Take 1 Vial by nebulization every 4 hours as needed for Wheezing. 50 Vial 1 11/14/2019 Active lorazepam (ATIVAN) 0.5 MG tablet Take 1 tablet by mouth daily as needed for Anxiety. 14 tablet 0 10/20/2020 Active Fluticasone-Salmet wesley 113-14 MCG/ACT AEROSOL POWDER,BREATH ACTIVATED Inhale 1 Puff into the lungs 2 Times Daily. 1 Each 1 04/08/2021 Active ALBUTEROL SULFATE 108 (90 Base) MCG/ACT Aero Soln Inhale 2 Puffs into the lungs every 4 hours as needed for Cough or Wheezing. 8.5 g 0 04/08/2021 Active Active Problems Problem Noted Date Reactive airway disease 08/16/2015 Ventral hernia without obstruction or ga ngrene 03/09/2015 Resolved Problems Problem Noted Date Resolved Date NO ACTIVE MEDICAL PROBLEMS 01/15 Immunizations Name Administration Dates Next Due Tdap 10/05/2013 Family History Medical History Relation Name Comments Alcohol and Other Drug Abuse Father liver disease due to alcohol Relation Name Status Comments Father Mother Alive Social History Tobacco Use Types Packs/Day Years Used Date Smoking Tobacco: Former Smokeless Tobacco: Never Comments:quit 2012 Alcohol Use Standard Drinks/Week Comments Not Currently 0 (1 standard drink = 0.6 oz pur e alcohol) Sex Assigned at Date Recorded Not on file Last Filed Vital Signs Vital Sign Reading Time Taken Comments Blood Pressure 96/60 11/01/2020 10:36 AM EDT Pulse 98 11/01/2020 10:36 AM EDT Temperature 36.6 ??C (97.9 ??F) 10/20/2020 1:13 PM ED T Respiratory Rate 18 11/01/2020 10:3 6 AM EDT Oxygen Saturation 97% 10/20/2020 1:13 PM EDT Inhaled Oxygen Concentration - - Weight 59.3 kg (130 lb 12.8 oz) 021 10:36 AM EDT Height 158.8 cm (5' 2.5 ) 10/20/2020 1:13 PM EDT Body Mass Index 23.54 10/20/2020 1:13 PM EDT Plan of Treatment Health Maintenance Due Date Last Done Comments Covid-19 Vaccine (#1) 01/18/1982 PNEUMOCOCCAL VACCINE FOR HIG H RISK PATIENTS (#1) 2000 CHOLESTEROL SCREENING 2001 BASELINE HEALTH EXAM 40-64 2021 02/21/2019 MAMMOGRAM 2021 CERVICAL CANCER SCREENING 11/02/2023 11/01/2020, INFLUENZA (Season Ended) 2025 DTAP/TDAP/TD (3 - Td or Tdap) 05/09/2027 05/09/2017, 10/05/2013 Care Teams Cold Storage Worker Relationship Specialty Start Date End Date Young Duke MD [address] [place] [id number] PCP - General Internal Medicine 04/08/21
== END 2024-08-18 13:05 | disposition home or self-care (01) ==
LOC: HO.HWS 10:45
PROVIDERS: PCP Internal Medicine; Visit Provider Advanced Practice Midwife
DX: Z01.419 Encounter for gynecological examination (general) (routine) without abnormal findings (principal); Z98.82 Breast implant status; E66.811 Obesity, class 1
CPT/HCPCS: 99396; 99459

== ENCOUNTER → 2024-08-18 10:45 | Outpatient (BNVA) | payer OTHER, SELFPAY | PROVIDERS: PCP Internal Medicine; Visit Provider Advanced Practice Midwife ==

== ENCOUNTER 2024-09-17 08:10 | Outpatient (AMB) | payer OTHER, SELFPAY ==
--- NOTE | 2024-09-17 09:11 | MHC.OFFVISWM ---
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 Allergies No Known Allergies Allergy (Verified 09/17/24 09:11) Medication List - Last Reconciled 09/17/24 by Morgan Marie MD albuterol sulfate 90 mcg/actuation 2 puffs inhalation Q4H PRN fluticasone propion-salmeterol 250-50 mcg/dose (Advair Diskus) 1 inh inhalation BID valacyclovir 500 mg PO DAILY HPI HPI TV SOIL CONSERVATION AIDE MWL: Details: Start time: 9.00am, End time: 9.45am ?I spent 40 minutes speaking with the patient on the phone plus an additional 5 minutes reviewing and updating records for a total of 45 minutes HPI Comments Details: Previous weight loss efforts: Keto diet Wakes up: 6am, Sleeps: 10pm Breakfast: 7-8am (eggs) Lunch: 12-2pm (chicken) Dinner: 6pm (as lunch, rice, vegetables) Snacks: 10am (salad), 3-4pm (left over food), occasionally at night as well Exercise: Has a walking pad Beverages: Coffee: (1-2 cup/day with creamer), tea: none, soda: diet soda occasionally, juice: none, ETOH: 1-2/mth [facility] Medical History (Updated 09/17/24 @ 09:13 by Morgan Marie MD) Asthma Morbid obesity Surgical History (Updated 09/17/24 @ 09:13 by Morgan Marie MD) History of delivery No history of previous surgery Family History Paternal Grandmother Breast cancer Social History (Updated 09/11/24 @ 08:15 by Angela Ruiz CMA) Household Members Other:: , 2 children 9 ,5. works at [employer], exercise, Housing: House Alcohol intake: current Alcohol intake frequency: holidays/special occasions only Patient Tobacco Use Status: Former Tobacco user e-Cigarette/Vaping Use: Never Used service: No Current occupational status: employed Cognitive needs: No Hearing needs: No Vision needs: No Female Reproductive History Menstrual Age of Menarche: 13 Telehealth Telehealth Telehealth Platform: Telephone Location of provider rendering services: practice address Location of patient: address on file Patient Identification confirmed using: Name, : Yes Telehealth method: voice only Patient verbally consented to treatment: Yes Patient verbally consented to billing insurance company: Yes Patient informed of any privacy concerns related to visit: Yes Minutes spent on Phone/Video with Pt.: 45 Assessment & Plan Assessment & Plan (1) Obesity (BMI 30.0-34.9): Code(s): E66.811 - Obesity, class 1 Category: Medical Plan: 1. Start the Zepbound when you get your body composition scale once a week. We discussed the potential side effects of Zepbound such as nausea, vomiting, abdominal pain, diarrhea and constipation and you will need to contact me if any of these symptoms occur or for any other new symptom you may experience 2. You will receive a link of our software jesus to generate an individualized nutritional and exercise plan specific for you. Please send me a screenshot of the plans you will generate Meal to include lean meat (beef, fish, pork, turkey, chicken), or spanish yogurt, or egg whites, or beans with a salad with olive oil and fruits (berries, pears, apples, kiwi). Avoid salt, breads, potatoes, rice, pasta, desserts. ?3. If you choose shakes, each shake would be drunk slowly, like coffee in a period of 2 hours. ?4. If you choose bars, cut each bar in 4 pieces and eat each piece in 30min ?to make each bar last 2 hours. ?5. I emphasized the importance of measuring accurately the food portion and measure it when serving the food in plate ?6. The meal portions include a specific number of forks of meat and salad. You always eat the meat portion but you can replace up to half of salad/vegetables portion with rice, potatoes or pasta, or a fruit ?if you like. The less you do it the better weight loss will be. ?7. One full-size fork is what it can be scooped on the fork without falling aside and not what can be bit with the fork. Use regular forks like those you find in a typical restaurant. ?8.? Please buy the body composition scale we discussed and send me weight measurements as soon as possible and then once a week. Always include your diet and exercise plan. 9. The best choice would be to purchase a stationary bike at home that can track calories but if not possible you could use the walking pad you have. You can create and exercise plan with the [employer] jesus. ?10.?It is important of avoiding and for at least 18 months postoperatively and has been discussed at the infosession. ?11. Goal is to lose at least 1.5-2lbs per week ?12. Goal to lose a minimum of 10% of your weight, which is about 17lbs. Minimum weight goal: 153lbs Medications: New tirzepatide (weight loss) (Zepbound) for 4 weeks 2.5 mg (0.5 mL) subcut QWEEK 2 mL 0RF E66.811 - Obesity, class 1, Z68.30 - Body mass index [BMI] 30.0-30.9, adult
[2024-09-17 09:18] VITALS: TEMP 137.7; TEMP 279.8; BMI 30.2
== END 2024-09-17 09:50 | disposition home or self-care (01) ==
LOC: HO.HBS 08:10
PROVIDERS: PCP Internal Medicine; Visit Provider Surgery
DX: E66.811 Obesity, class 1 (principal); Z68.30 Body mass index [BMI] 30.0-30.9, adult
CPT/HCPCS: 98002

== ENCOUNTER → 2024-09-17 08:10 | Outpatient (BNVA) | payer OTHER, SELFPAY | PROVIDERS: PCP Internal Medicine; Visit Provider Surgery ==

== ENCOUNTER 2024-10-14 09:05 | Outpatient (REF) | payer OTHER, SELFPAY | END 2024-10-14 09:06 | disposition home or self-care (01) | LOC: HO.MAMMO 09:05 | PROVIDERS: PCP Internal Medicine; Visit Provider Advanced Practice Midwife | DX: Z12.31 Encounter for screening mammogram for malignant neoplasm of breast (principal) | CPT/HCPCS: 77063; 77067 ==

== ENCOUNTER → 2024-10-14 09:30 | Outpatient (BNV) | payer OTHER, SELFPAY | PROVIDERS: PCP Internal Medicine; Visit Provider Internal Medicine | DX: Z12.31 Encounter for screening mammogram for malignant neoplasm of breast (principal) | CPT/HCPCS: 77063; 77067 ==

== ENCOUNTER 2024-10-23 13:09 | Outpatient (AMB) | payer OTHER, SELFPAY ==
[2024-10-23 13:11] VITALS: BP 106/70; PULSE 86; RESP 18; TEMP 36.9; O2SAT 97; BMI 29.0
--- NOTE | 2024-10-23 13:11 | A.OFFPC_ITS ---
Vital Signs 10/23/24 13:11 Height 5 ft 3 in Weight 164 lb BMI 29.0 BP 106/70 Blood Pressure Location Lt brachial Position Sitting Respiration 18 Pulse 86 Pulse Source Pulse Oximeter Temp 98.4 F Temp Source Oral Pulse Oximetry (%) 97 Oxygen Delivery Method Room Air Intake Visit Reasons: PE Intake Note: Pt is here today for PE. Allergies No Known Allergies Allergy (Verified 10/23/24 13:12) Medication List - Last Reconciled 10/23/24 by Mercy Stanley MD albuterol sulfate 90 mcg/actuation 2 puffs inhalation Q4H PRN fluticasone propion-salmeterol 250-50 mcg/dose (Advair Diskus) 1 inh inhalation BID tirzepatide (weight loss) (Zepbound) 5 mg (0.5 mL) subcut QWEEK valacyclovir 500 mg PO DAILY Tobacco use date assessed: 10/23/24 Dental Screening Dental Screen Date: 10/23/24 Did you have a dental visit in the last 12 months?: Yes Did you have a dental problem in the last 6 months where you did not have access to dental care?: No Was dental information given to patient?: Patient has dentist HPI PE HPI Details Patient presents for physical. Asthma is controlled on albuterol as needed. Patient usually starts using Advair in the fall and winter. She has been taking Zepbound for 2nd month prescribed by weight management program and lost 10 lb. Patient has been decreasing caloric intake trying to increase physical activity. [facility] Medical History (Updated 10/23/24 @ 14:04 by Mercy Stanley MD) Annual physical exam Well woman exam with routine gynecological exam Overweight Asthma Morbid obesity Surgical History History of delivery No history of previous surgery Family History Paternal Grandmother Breast cancer Social History Household Members Other:: , 2 children 9 ,5. works at [employer], exercise, Housing: House Alcohol intake: current Alcohol intake frequency: holidays/special occasions only Patient Tobacco Use Status: Former Tobacco user e-Cigarette/Vaping Use: Never Used service: No Current occupational status: employed Cognitive needs: No Hearing needs: No Vision needs: No Female Reproductive History Menstrual Age of Menarche: 13 Questionnaire PHQ-9 Over the last 2 weeks, how often have you been bothered by any of the following problems? 1. Little interest or pleasure in doing things: not at all 2. Feeling down, depressed, or hopeless: not at all 3. Trouble falling or staying asleep, or sleeping too much: several days 4. Feeling tired or having little energy: several days 5. Poor appetite or overeating: more than half the days 6. Feeling bad about yourself - or that you are a failure or have let yourself or your family down: not at all 7. Trouble concentrating on things, such as reading the newspaper or watching television: not at all 8. Moving or speaking so slowly that other people could have noticed. Or the opposite - being so fidgety or restless that you have been moving around a lot more than usual: not at all 9. Thoughts that you would be better off or of hurting yourself in some way: not at all Total score: 4 Depression Screening Interpretation: Negative Depression Screening Done: Yes 29427 - PHQ-9 Billing: Yes Source: Developed by Drs. Zan Parkinson, Vanessa Aguilar, Eliel Gomez and colleagues, with an educational deepak from [employer]. Thrive Questionnaire Date Thrive assessed: 10/23/24 I am a: Patient What is your living situation today?: I have a steady place to live Within the past 12 months, did the food you bought not last and you didn't have the money to get more?: Never true Within the past 12 months, did you worry whether your food would run out before you got money to buy more?: Never true Do you have trouble paying for medicines?: No Do you have trouble getting transportation to medical appointments?: No Do you have trouble paying your heating and electricity bill?: No Do you have trouble taking care of your child, family member or friend?: No Do you have trouble with day-to-day activities such as bathing, preparing meals, shopping, managing finances, etc.?: No Are you currently unemployed and looking for a job?: No Are you interested in more education?: No Please select the resources that you would like help with: None Currently or been in a relationship where the following occur: No concerns reported THRIVE Score: 0 AUDIT C Alcohol Use Questionnaire (AUDIT-C) 1. How often do you have a drink containing alcohol?: 2-4 times a month 2. How many drinks containing alcohol do you have on a typical day when you are drinking?: 1 or 2 3. How often do you have six or more drinks on one occasion?: Never Total Score: 2 JIE-7 AMB Questionnaire JIE-7 Date JIE - 7 assessed: 10/23/24 Feeling nervous, anxious, or on edge: 0 = Not at all Not being able to stop or control worryin = Not at all Worrying too much about different things: 0 = Not at all Trouble relaxin = Not at all Being so restless that it is hard to sit still: 0 = Not at all Becoming easily annoyed or irritable: 0 = Not at all Feeling afraid as if something awful might happen: 0 = Not at all Total JIE-7 score (0-4 normal; 5-9 mild; 10-14 moderate; 15-21 severe): 0 Source: Developed by Drs. Zan Parkinson, Vanessa Aguilar, Eliel Gomez and colleagues, with an educational deepak from [employer]. JIE-7 Assessment Billing JIE-7 Assessment Tool: JIE-7 Assessment 94803 Review of Systems Const All systems reviewed & are unremarkable except as noted in HPI and below Eyes Reports no additional complaints ENT Reports no additional complaints Card Reports no additional complaints Resp Reports no additional complaints GI Reports no additional complaints Reports no additional complaints Physical exam (Primary Care) Vital Signs: Last Vital Signs Temp 98.4 F 10/23/24 13:11 Pulse 86 10/23/24 13:11 Resp 18 10/23/24 13:11 BP 106/70 10/23/24 13:11 Pulse Ox 97 10/23/24 13:11 Oxygen Delivery Method Room Air 10/23/24 13:11 BMI result Body Mass Index 29.0 Tobacco/Smoking Status: Tobacco use Status Tobacco use date assessed 10/23/24 10/23/24 13:18 Patient Tobacco Use Status Former Tobacco user 10/23/24 13:18 e-Cigarette/Vaping Use Never Used 10/23/24 13:18 PHQ-9: PHQ-9 Score PHQ-9: Total score 4 10/23/24 13:18 Depression Screening Interpretation: Negative Thrive Assessment: Date of Thrive Assessment Date Thrive assessed 10/23/24 10/23/24 13:18 Currently or been in a relationship where the following occur: No concerns reported Const General: no acute distress HENMT Head: Yes normal to inspection Ears: hearing grossly normal bilaterally Face and sinus: Yes normal facial exam Mouth: Normal oral and palatal mucosa present Eyes General: appearance normal, both eyes and all related structures Neck Neck: Yes no lymphadenopathy and Yes supple Resp Effort & Inspection: normal respiratory effort Auscultation: clear to auscultation bilaterally Cardio Rhythm: regular rhythm Heart sounds: S1 normal heart sound present and S2 normal heart sound present GI Inspection: Yes normal to inspection Palpation (GI): Soft to palpation Percussion: Yes normal to percussion Auscultation: normal bowel sounds Coding Level of Care Code Est Pt Prev Care 40-64y(67020) Diagnoses Annual physical exam Z00. Well woman exam with routine gynecological exam Z01.419 Overweight E66.3 Asthma J45.909 Additional Codes JIE-7 Assessment Billing - JIE-7 Assessment Tool: JIE-7 Assessment [id number] ([id number]) PHQ-9 - 28469 - PHQ-9 Billing: Yes ([id number]) Assessment & Plan Assessment & Plan (1) Annual physical exam: Code(s): Z00.00 - Encounter for general adult medical examination without abnormal findings Category: Medical Plan: Well-balanced diet regular physical activity discussed with the patient. She will return for fasting blood work (2) Well woman exam with routine gynecological exam: Code(s): Z01.419 - Encounter for gynecological examination (general) (routine) without abnormal findings Category: Medical Plan: Up-to-date with obstetrician gynecologist exam (3) Overweight: Code(s): E66.3 - Overweight Category: Medical Plan: In weight management program on Zepbound (4) Asthma: Comment: Mild controlled on albuterol p.r.n. Code(s): J45.909 - Unspecified asthma, uncomplicated Category: Medical Plan: Continue albuterol PRN restart Advair in fall and winter Orders: Orders Comprehensive [place]. Panel Fast Today Z00.00 - Encounter for general adult medical examination without abnormal findings Complete Blood Count Auto Diff Today Z00.00 - Encounter for general adult medical examination without abnormal findings Lipid Panel Today Z00.00 - Encounter for general adult medical examination without abnormal findings TSH reflex Free T4 Today Z00.00 - Encounter for general adult medical examination without abnormal findings UA w Microscopic Today Z00.00 - Encounter for general adult medical examination without abnormal findings
== END 2024-10-23 14:08 | disposition home or self-care (01) ==
LOC: HO.HMCC 13:09
PROVIDERS: PCP Internal Medicine; Visit Provider Internal Medicine
DX: Z00.00 Encounter for general adult medical examination without abnormal findings (principal); Z01.419 Encounter for gynecological examination (general) (routine) without abnormal findings; E66.3 Overweight; J45.909 Unspecified asthma, uncomplicated

== ENCOUNTER → 2024-10-23 13:09 | Outpatient (BNVA) | payer OTHER, SELFPAY | PROVIDERS: PCP Internal Medicine; Visit Provider Internal Medicine | DX: Z00.00 Encounter for general adult medical examination without abnormal findings (principal); J45.909 Unspecified asthma, uncomplicated; E66.3 Overweight | CPT/HCPCS: 96127 ==